=== PATIENT | female | born 1990 | race Caucasian/White ===

== ENCOUNTER 2018-02-23 14:40 | Inpatient (IN) | payer MEDICAID ==
--- NOTE | 2018-02-23 15:08 | ED PDOC ---
Arrival/HPI - General Chief Complaint: GI Problem Time Seen by Provider: 02/23/18 14:51 Historian: Patient - History of Present Illness Narrative History of Present Illness (Text): 02/23/18 15:04 27 y/o female, no significant pmh, nkda, approx. 6 weeks , , LMP , c/o epigastric pain with nausea/vomiting x 10 days. Pt. stated that she was seen at [facility] ER already for this problem, discharge home with zofran/ diclegiis, stated that it's limited relief for her, no lower abdominal or pelvic pain, no hematuria, no palpitation, no chest pain or shortness of breath , no numbness or tingling, no other medical or psychological complaints. Past Medical History - Provider Review Nursing Documentation Reviewed: Yes - Infectious Disease Hx of Infectious Diseases: None - Psychiatric Hx Substance Use: No - Anesthesia Hx Anesthesia: No Family/Social History - Physician Review Nursing Documentation Reviewed: Yes Family/Social History: Unknown Family HX Smoking Status: Unknown If Ever Smoked Hx Alcohol Use: No Hx Substance Use: No Allergies/Home Meds Allergies/Adverse Reactions: Allergies No Known Allergies Allergy (Verified 02/23/18 15:00) Home Medications: Home Meds Medication Instructions Recorded Confirmed No Known Home Med 02/23/18 02/23/18 Review of Systems - Review of Systems Constitutional: absent: Fatigue, Fevers Eyes: absent: Vision Changes ENT: absent: Hearing Changes Respiratory: absent: SOB, Cough Cardiovascular: absent: Chest Pain Gastrointestinal: Abdominal Pain, Nausea, Vomiting. absent: Diarrhea Musculoskeletal: absent: Arthralgias, Back Pain Skin: absent: Rash, Pruritis Neurological: absent: Headache, Dizziness Psychiatric: absent: Anxiety, Depression Physical Exam Vital Signs Reviewed: Yes Vital Signs Temp Pulse Resp BP Pulse Ox 02/23/18 18:00 97.3 F L 89 17 103/63 99 02/23/18 16:12 98.4 F 02/23/18 14:56 99.5 F 88 18 123/84 99 Temperature: Afebrile Blood Pressure: Normal Pulse: Regular Respiratory Rate: Normal Appearance: Positive for: Well-Appearing, Non-Toxic Pain Distress: Mild Mental Status: Positive for: Alert and Oriented X 3 - Systems Exam Head: Present: Atraumatic, Normocephalic Pupils: Present: PERRL Extroacular Muscles: Present: EOMI Conjunctiva: Present: Normal Mouth: Present: Moist Mucous Membranes Neck: Present: Normal Range of Motion Respiratory/Chest: Present: Clear to Auscultation, Good Air Exchange. No: Respiratory Distress, Accessory Muscle Use Cardiovascular: Present: Regular Rate and Rhythm, Normal S1, S2. No: Murmurs Abdomen: Present: Tenderness (+epigastric tenderness, negative aquino sign). No : Distention, Peritoneal Signs, Rebound, Guarding Back: Present: Normal Inspection. No: Midline Tenderness Upper Extremity: Present: Normal Inspection. No: Cyanosis, Edema Lower Extremity: Present: Normal Inspection. No: Edema Neurological: Present: GCS=15, CN II-XII Intact, Speech Normal, Motor Func Grossly Intact, Gait Normal, Memory Normal Skin: Present: Warm, Dry, Normal Color. No: Rashes Psychiatric: Present: Alert, Oriented x 3, Normal Insight, Normal Concentration Medical Decision Making ED Course and Treatment: 02/23/18 15:14 Differential: Cholecystitis vs. Gastritis vs. induced vomiting vs. Dehydration vs. Rhabdomylosis vs. Electorlyte imbalance vs. UTI -Labs/ua -IVF/pepcid/reglan -Abdominal sonogram -Observe and reassess 02/23/18 18:26 -Pt. feels nauseous with 50mg IV benadryl and fluid continuous with mild improvement. -Abdominal sonogram show: No significant or acute findings to account for/ related to the clinical presentation. -Labs show no acute findings except potassium 3.2 from vomiting (potassium chloride po ordered, confirmed with Dr. Mesa and it's okay for single dose po ) -UA ordered but no urine sample yet after 1500cc fluid -I tried to give her saltine cracker and muriel todd, unable to keep it down, has intrable vomiting and poor ingestion po, will admit her for observation, paging obgyn nutrition worker Dr. Hayes. 02/23/18 18:33 -I spoke to Dr. Hayes obgyn nutrition worker, discussed about the case/labs/treatment, agreed to admit this patient for observation, and will see the patient as consult tomorrow. Paging hospitalist for admission. 02/23/18 18:42 -I spoke to the hospitalist, Dr. Shepherd, discussed about the case/labs/treatment/ discussion with DR. Hayes, will admit to her service -I discussed with DR. Mesa, he will put in the admission. -Pending UA result. 02/23/18 19:11 -UA show +Leukocyte, po intolerance, rocephine 1gm IV ordered. - Lab Interpretations Lab Results: 02/23/18 15:20 02/23/18 15:20 Lab Results 02/23/18 15:20: WBC 4.5, RBC 5.24, Hgb 13.3, Hct 39.8, MCV 76.0 L, MCH 25.4, MCHC 33.4, RDW 12.5, Plt Count 261, MPV 11.9 H, Gran % 60.7, Lymph % (Auto) 27.1 , [place] % (Auto) 11.8 H, Eos % (Auto) 0.0 L, Baso % (Auto) 0.4, Gran # 2.73, Lymph # (Auto) 1.2, [place] # (Auto) 0.5, Eos # (Auto) 0.0, Baso # (Auto) 0.02 02/23/18 15:20: Beta HCG, Quant [id number] H 02/23/18 15:20: Sodium 142, Potassium 3.2 L, Chloride 102, Carbon Dioxide 21, Anion Gap 22 H, BUN 8, Creatinine 0.4 L, Est GFR ( Amer) > 60, Est GFR ( Non-Af Amer) > 60, Random Glucose 84, Calcium 9.9, Total Bilirubin 0.5, AST 27, ALT 33, Alkaline Phosphatase 97, Total Creatine Kinase 32 L, Total Protein 8.6 H , Albumin 4.7, Globulin 3.9, Albumin/Globulin Ratio 1.2, Lipase 41 - RAD Interpretation Radiology Orders: 02/23/18 15:08 ABDOMEN COMPLETE [US] Stat HISTORY: epigastric pain, vomiting COMPARISON: None. TECHNIQUE: Sonographic evaluation of the abdomen. FINDINGS: LIVER: Measures 14.4 cm. Normal echogenicity of the liver parenchyma. No mass. No intrahepatic bile duct dilatation. GALLBLADDER: Unremarkable. No gallstones. COMMON BILE DUCT: Measures 5.1 mm. No stones. No dilatation. PANCREAS: Obscured by overlying bowel gas. Non diagnostic assessment of the pancreas RIGHT KIDNEY: Measures 4.7 x 9.9cm. Normal echogenicity. No calculus, mass, or hydronephrosis. LEFT KIDNEY: Measures 5.3 x 10.3cm. Normal echogenicity. No calculus, mass, or hydronephrosis. SPLEEN: Normal in size and contour. No mass. AORTA: Obscured by overlying bowel gas IVC: Obscured by overlying bowel gas. OTHER FINDINGS: None. IMPRESSION: No significant or acute findings to account for/ related to the clinical presentation. Limitations of the current examination: Nonvisualization of retroperitoneal structures including aorta, IVC and pancreas. She Dental Laboratory Technology Teacher: Radiologist - Medication Orders Current Medication Orders: Sodium Chloride (Sodium Chloride 0.9%) 1,000 mls @ 500 mls/hr IV .Q2H ELOINA Last Admin: 02/23/18 16:58 Dose: 500 mls/hr eMAR Start Stop Document 02/23/18 16:58 EWO (Rec: 02/23/18 16:58 [facility] [id number]) Intravenous Solution Start Date 02/23/18 Start Time 16:58 End Date 02/23/18 End time 17:58 Total Infusion Time 60 Ceftriaxone Sodium (Rocephin 1 Gram Ivpb) 1 gm in 100 mls @ 200 mls/hr IVPB STAT STA PRN Reason: Protocol Stop: 02/23/18 19:39 Discontinued Medications Diphenhydramine HCl (Benadryl) 50 mg IVP STAT STA Stop: 02/23/18 16:34 Last Admin: 02/23/18 16:58 Dose: 50 mg IVP Administration Document 02/23/18 16:58 EW (Rec: 02/23/18 16:58 [facility] [id number]) Charges for Administration # of IVP Administrations 1 Famotidine (Pepcid) 20 mg IVP STAT STA Stop: 02/23/18 15:10 Last Admin: 02/23/18 16:10 Dose: 20 mg IVP Administration Document 02/23/18 16:10 EWO (Rec: 02/23/18 16:10 [facility] [id number]) Charges for Administration # of IVP Administrations 1 Sodium Chloride (Sodium Chloride 0.9%) 1,000 mls @ 999 mls/hr IV .Q1H1M STA Stop: 02/23/18 16:09 Last Admin: 02/23/18 15:26 Dose: 999 mls/hr eMAR Start Stop Document 02/23/18 15:26 EWO (Rec: 02/23/18 15:26 [facility] [id number]) Intravenous Solution Start Date 02/23/18 Start Time 15:26 End Date 02/23/18 End time 16:26 Total Infusion Time 60 Metoclopramide HCl (Reglan) 10 mg IVP STAT STA Stop: 02/23/18 15:10 Last Admin: 02/23/18 15:26 Dose: 10 mg IVP Administration Document 02/23/18 15:26 EWO (Rec: 02/23/18 15:26 [facility] [id number]) Charges for Administration # of IVP Administrations 1 Potassium Chloride (K-Dur 20 Meq Er Tab) 20 meq PO STAT STA Stop: 02/23/18 16:37 Last Admin: 02/23/18 16:58 Dose: 20 meq - PA / PRODUCTION MAINTENANCE MECHANIC / Resident Statement / has reviewed & agrees with the documentation as recorded. Disposition/Present on Arrival - Present on Arrival Any Indicators Present on Arrival: No History of DVT/PE: No History of Uncontrolled Diabetes: No Urinary Catheter: No History of Decub. Ulcer: No History Surgical Site Infection Following: None - Disposition Have Diagnosis and Disposition been Completed?: Yes Diagnosis: , Vomiting, Hyperemesis arising during , Intractable vomiting , UTI (urinary tract infection) Disposition: HOSPITALIZED Disposition Time: 15:15 Patient Plan: Admission, Observation Patient Problems: Current Active Problems Problem Status Onset Acute Vomiting Acute Hyperemesis arising during Acute Intractable vomiting Acute Condition: STABLE
[2018-02-23] MEDS ORDERED: Sodium Chloride 0.9% 1,000 ML IV STA (15:09)
--- NOTE | 2018-02-23 16:09 | US ---
HISTORY: epigastric pain, vomiting COMPARISON: None. TECHNIQUE: Sonographic evaluation of the abdomen. FINDINGS: LIVER: Measures 14.4 cm. Normal echogenicity of the liver parenchyma. No mass. No intrahepatic bile duct dilatation. GALLBLADDER: Unremarkable. No gallstones. COMMON BILE DUCT: Measures 5.1 mm. No stones. No dilatation. PANCREAS: Obscured by overlying bowel gas. Non diagnostic assessment of the pancreas RIGHT KIDNEY: Measures 4.7 x 9.9cm. Normal echogenicity. No calculus, mass, or hydronephrosis. LEFT KIDNEY: Measures 5.3 x 10.3cm. Normal echogenicity. No calculus, mass, or hydronephrosis. SPLEEN: Normal in size and contour. No mass. AORTA: Obscured by overlying bowel gas IVC: Obscured by overlying bowel gas. OTHER FINDINGS: None. IMPRESSION: No significant or acute findings to account for/ related to the clinical presentation. Limitations of the current examination: Nonvisualization of retroperitoneal structures including aorta, IVC and pancreas. She
[2018-02-23 16:20] LABS: BASO # 0.02 K/mm3 (0.0-2.0); BASO % 0.4 % (0.0-3.0); GRAN # 2.73 (1.4-6.5); GRAN % 60.7 % (50.0-68.0); HEMOGLOBIN 13.3 g/dL (12.0-16.0); LYMPH # 1.2 (1.2-3.4); LYMPH % 27.1 % (22.0-35.0); MEAN CORPUSCULAR HEMOGLOBIN 25.4 pg (25.0-35.0); MEAN CORPUSCULAR HGB CONC 33.4 g/dl (31.0-37.0); MEAN PLATELET VOLUME 11.9 fl (7.0-11.0); MONO # 0.5 (0.1-0.6); MONO % 11.8 % (1.0-6.0); RBC 5.24 10^6/uL (3.5-6.1); RED CELL DISTRIBUTION WIDTH 12.5 % (11.5-14.5); WHITE BLOOD COUNT 4.5 10^3/ul (4.5-11.0)
[2018-02-23 16:21] LABS: ALB/GLOB RATIO 1.2 (1.1-1.8); ALBUMIN 4.7 g/dL (3.0-4.8); ALT/SGPT 33 U/L (7-56); AST/SGOT 27 U/L (14-36); BLOOD UREA NITROGEN 8 mg/dL (7-21); CALCIUM 9.9 mg/dL (8.4-10.5); GFR AFRICAN-AMERICAN > 60; GFR NON-AFRICAN AMERICAN > 60; LIPASE 41 U/L (23-300)
[2018-02-23] MEDS ORDERED: DiphenhydrAMINE 50 mg/ml Inj IVP STA (16:33)
[2018-02-23] MEDS ORDERED: Potassium Chloride 20 mEq ER Tab PO STA ×2 (16:36→20:32)
[2018-02-23] MEDS ORDERED: Sodium Chloride 0.9% 1,000 ML IV SCH (16:45)
[2018-02-23 19:05] LABS: URINE BILIRUBIN NEGATIVE (NEGATIVE); URINE BLOOD SMALL (NEGATIVE); URINE GLUCOSE (UA) NEGATIVE (NEGATIVE); URINE LEUKOCYTE ESTERASE SMALL Leu/uL (NEGATIVE); URINE PROTEIN 30 mg/dL (<30 mg/dL); URINE UROBILINOGEN 0.2 E.U./dL (<1 E.U./dL)
[2018-02-23 19:09] LABS: URINE APPEARANCE SL CLOUDY (CLEAR); URINE COLOR YELLOW (YELLOW)
[2018-02-23] MEDS ORDERED: cefTRIAXone 1 gm 1 GM/100 ML BAG IVPB STA (19:10)
[2018-02-23 19:19] LABS: URINE BACTERIA MOD (NEG); URINE EPITHELIAL CELLS MANY /hpf (0-5); URINE RBC 15 - 20 /hpf (0-2); URINE WBC 15 - 20 /hpf (0-6)
[2018-02-23 20:31] VITALS: BMI 28.3
--- NOTE | 2018-02-23 20:41 | CP.PCM.HP ---
<Chandni Grant - Last Filed: 02/23/18 21:50> History of Present Illness - History of Present Illness History of Present Illness: Chandni Grant D.O. PYG1 -- Natural Resources Technician -- Medicine History and Physical This is a 27 female with past medical history of GERD and urinary tract infection (UTI) who came into the [facility] Emergency Department ( ED) for nausea and vomiting. Per patient, the nausea and vomiting began 10 days ago. She says that she has not been able to eat or drink much without it leading to bouts of vomiting. Patient describes the vomit as white and greenish. Patient reports she is about 6 weeks , and her first day of her menstrual cycle was December 31, 2017. Patient says that consuming food and liquid exacerbate her vomiting episodes. Patient recently seen at [facility], where she was given zofran for her nausea and vomiting, but it persisted. Patient says she had similar symptoms with her prior pregnancies, which were both normal vaginal deliveries with no complications. In addition, the patient reports that she was recently started on treatment for UTI starting 7 days ago, which was the treatment she received at [facility] ED this previous Saturday. Patient admits she has 1 day left of antibiotics. Patient admits to epigastric pain which she describes as burning sensation. ROS is otherwise unremarkable for abdominal pain, diarrhea, rash, lower extremity pain or swelling, fever, chills, dysuria, hematuria, pelvic cramping, vaginal spotting and/or vaginal bleeding, history of abortions and/or miscarriages. Past Medical History: GERD - Per patient, only during Surgical History: Patient denies Family History: Patient denies family history of anemia, and/or bleeding tendencies Home Medications: Doxylamine QH Ondansetron Nitrofurantoin vitamin Known allergies: Patient denies Insurance: [place] Medicaid O Golf Player Assistant: Anum Marks Anne Primary Care physician: Unknown Present on Admission - Present on Admission Any Indicators Present on Admission: No History of DVT/PE: No History of Uncontrolled Diabetes: No Urinary Catheter: No Decubitus Ulcer Present: No Review of Systems - Review of Systems Systems not reviewed;Unavailable: Language Barrier (Translation provided by who speaks and understand Chinese adequately ) Review of Systems: as per HPI - Constitutional Constitutional: As Per HPI - EENT Eyes: As Per HPI Ears: As Per HPI Nose/Mouth/Throat: As Per HPI - Breasts Breasts: As Per HPI - Cardiovascular Cardiovascular: As Per HPI - Respiratory Respiratory: As Per HPI - Gastrointestinal Gastrointestinal: As Per HPI - Genitourinary Genitourinary: As Per HPI - Reproductive: Female Reproductive:Female: As Per HPI - Menstruation Menstruation: As Per HPI - Musculoskeletal Musculoskeletal: As Per HPI - Integumentary Integumentary: As Per HPI - Neurological Neurological: As Per HPI - Psychiatric Psychiatric: As Per HPI - Endocrine Endocrine: As Per HPI - Hematologic/Lymphatic Hematologic: As Per HPI Past Patient History - Infectious Disease Hx of Infectious Diseases: None - Tetanus Immunizations Tetanus Immunization: Unknown - Past Medical History & Family History Past Medical History?: Yes Past Family History: Reviewed and not pertinent Pertinent Family History: Patient denies family history of bleeding disorders, anemia, and/or heart conditions. - Past Social History Smoking Status: Never Smoked Chewing Tobacco Use: No Cigar Use: No Occupation: Unemployed Alcohol: None Drugs: Denies Home Situation {Lives}: With Family Domestic Violence: Negative - GASTROINTESTINAL Hx Gastroesophageal Reflux: Yes (during both prior pregnancies ) Hx Vomiting: Yes (during both prior pregnancies ) - GENITOURINARY/GYNECOLOGICAL Hx Urinary Tract Infection: Yes (recently treated with macrobid ) LMP:: 12/31/2017 : 3 Para: 2 Termination of : 0 - PSYCHIATRIC Hx Psychophysiologic Disorder: No Hx Anxiety: No Hx Depression: No Hx Substance Use: No - SURGICAL HISTORY Hx Surgeries: No - ANESTHESIA Hx Anesthesia: No Meds Home Medications: Home Medication List Medication Instructions Recorded Confirmed Type Vit Calc,Iron,Folic 1 each PO DAILY #30 tablet 02/24/18 Rx [ Vitamins] Doxylamine/Pyridoxine HCl (B6) 2 each PO HS #30 tablet. 02/25/18 Rx [Conchita Mccrary 10-10 mg Tablet] Famotidine [Pepcid] 20 mg PO DAILY #15 tab 02/25/18 Rx Allergies/Adverse Reactions: Allergies Allergy/AdvReac Type Severity Reaction Status Date / Time No Known Allergies Allergy Verified 02/23/18 15:00 Physical Exam - Constitutional Appears: Well, No Acute Distress, Other - Head Exam Head Exam: ATRAUMATIC, NORMAL INSPECTION, NORMOCEPHALIC - Eye Exam Eye Exam: Normal appearance. absent: Conjunctival injection, Periorbital swelling, Scleral icterus Pupil Exam: NORMAL ACCOMODATION - ENT Exam ENT Exam: Mucous Membranes Moist - Neck Exam Neck exam: Positive for: Full Rom, Normal Inspection - Respiratory Exam Respiratory Exam: Clear to Auscultation Bilateral, NORMAL BREATHING PATTERN. absent: Accessory Muscle Use, Chest Wall Tenderness, Decreased Breath Sounds, Prolonged Expiratory Phase, Rales, Rhonchi, Wheezes, Respiratory Distress, Stridor - Cardiovascular Exam Cardiovascular Exam: REGULAR RHYTHM. absent: Bradycardia, Tachycardia, Clicks, Diastolic murmur, Gallop Additional comments: at 89 beats per minute - GI/Abdominal Exam GI & Abdominal Exam: Hypoactive Bowel Sounds, Soft, Tenderness (tenderness to palpation inferior to xyphoid process ). absent: Distended, Firm, Guarding Additional comments: Negative for Guerrero's sign, negative for McBurney's sign, no rebound, no guarding. - Extremities Exam Extremities exam: Positive for: full ROM, normal inspection. Negative for: calf tenderness, pedal edema, tenderness - Back Exam Back exam: NORMAL INSPECTION - Neurological Exam Neurological exam: Alert, CN II-XII Intact, Normal Gait, Oriented x3 - Psychiatric Exam Psychiatric exam: Normal Affect, Normal Mood - Skin Skin Exam: Dry, Intact, Pallor, Warm Results - Vital Signs Recent Vital Signs: Last Vital Signs Temp 97.3 F L 02/23/18 18:00 Pulse 89 02/23/18 18:00 Resp 17 02/23/18 18:00 BP 103/63 02/23/18 18:00 Pulse Ox 99 02/23/18 18:00 - Labs Result Diagrams: 02/23/18 15:20 02/23/18 15:20 Labs: Laboratory Results - last 24 hr 02/23/18 18:59 Urine Color Yellow Urine Appearance Sl cloudy Urine pH 6.0 Ur Specific [place] >= 1.030 Urine Protein 30 H Urine Glucose (UA) Negative Urine Ketones >=80 Urine Blood Small H Urine Nitrate Negative Urine Bilirubin Negative Urine Urobilinogen 0.2 Ur Leukocyte Esterase Small H Urine RBC 15 - 20 Urine WBC 15 - 20 Ur Epithelial Cells Many Urine Bacteria Mod - EKG Data EKG Interpreted by: ER Physician - EKG Data When Compared to Previous EKG: (no previous EKG) Assessment & Plan - Assessment and Plan (Free Text) Assessment: This is a 27 year old female at 6 weeks gestational age with past medical history of UTI refractory to macrobid, and GERD who presented to the ED for nausea, vomiting for 10 days. Patient was subsequently admitted for evaluation and treatment for dehydration and UTI. -induced nausea and vomiting versus unlikely cholecystitis Negative Guerrero's sign Abd/Pelvic Ultrasound, per radiology report: No significant or acute findings Start IVF NS 100c/hr Monitor with CMP NPO Metoclopramide 10mg IVP given in ED Ondansetron 4mg IVP Q6H PRN Golf Player Assistant consulted: Dr. Mendez, appreciate recommendations UTI, refractory to treatment with Macrobid Currently afebrile Single dose ceftriaxone 1gm IVPB given in ED Start Rocephin 1g IV Daily Pending repeat urine analysis Pending urine culture Upper epigastric pain likely secondary to GERD, likely -induced Continue famotidine 40mg PO HS Hypokalemia, K+ 3.2 Potassium 20mg PO given in ED Replete with potassium 40mg PO IVF Monitor GI/DVT Prophylaxis Pepcid Sequential compression device PRN The patient was seen and the case was reviewed in detail with Attending Physician Dr. Courtney Grant D.O. PGY1 -- Natural Resources Technician <Armaan Valdez - Last Filed: 02/26/18 22:37> Results - Vital Signs Recent Vital Signs: Last Vital Signs Temp 98.2 F 02/25/18 08:06 Pulse 66 02/25/18 08:06 Resp 18 02/25/18 08:06 BP 134/65 02/25/18 08:06 Pulse Ox 98 02/25/18 08:06 - Labs Result Diagrams: 02/25/18 05:45 02/25/18 05:45
[2018-02-23] MEDS: Sodium Chloride 0.9% 1,000 ML IV SCH (21:03)
[2018-02-24] MEDS: Sodium Chloride 0.9% 1,000 ML IV SCH (06:27)
[2018-02-24 06:37] LABS: BASO # 0.02 K/mm3 (0.0-2.0); BASO % 0.4 % (0.0-3.0); EOS % 0.7 % (1.5-5.0); GRAN # 2.32 (1.4-6.5); GRAN % 43.5 % (50.0-68.0); HEMOGLOBIN 11.5 g/dL (12.0-16.0); LYMPH # 2.4 (1.2-3.4); MEAN CELL VOLUME 76.3 fl (80.0-105.0); MEAN CORPUSCULAR HEMOGLOBIN 25.1 pg (25.0-35.0); MEAN CORPUSCULAR HGB CONC 32.9 g/dl (31.0-37.0); MEAN PLATELET VOLUME 11.9 fl (7.0-11.0); MONO # 0.6 (0.1-0.6); MONO % 11.4 % (1.0-6.0); RBC 4.59 10^6/uL (3.5-6.1); RED CELL DISTRIBUTION WIDTH 12.8 % (11.5-14.5); WHITE BLOOD COUNT 5.3 10^3/ul (4.5-11.0)
--- NOTE | 2018-02-24 06:50 | CP.PCM.PN ---
<Chandni Grant - Last Filed: 02/24/18 21:30> Subjective - Date & Time of Evaluation Date of Evaluation: 02/24/18 Time of Evaluation: 06:49 - Subjective Subjective: Chandni Grant D.O. PYG1 -- Product Marketer -- Medicine Progress Note Patient was seen at bedside and admits to continued nausea and vomiting this morning. Patient says she still has upper epigastric pain that she describes as burning. Patient was able to tolerate clear liquid diet in the afternoon, but was still nauseous. Patient otherwise denies leg pain, chest pain, shortness of breath, lower extremity edema, headache and/or pelvic cramping. Patient denies alcohol consumption, tobacco use, and/or recreational drug use. Objective - Vital Signs/Intake and Output Vital Signs (last 24 hours): Temp Pulse Resp BP Pulse Ox 98.3 F 59 L 20 128/69 99 02/24/18 06:00 02/24/18 06:00 02/24/18 06:00 02/24/18 06:00 02/24/18 06:00 Intake and Output: 02/23/18 02/24/18 18:59 06:59 Intake Total 1100 Output Total 0 Balance 1100 - Medications Medications: Current Medications Famotidine (Pepcid) 40 mg PO HS ELOINA Sodium Chloride (Sodium Chloride 0.9%) 1,000 mls @ 500 mls/hr IV .Q2H ELOINA Last Admin: 02/23/18 16:58 Dose: 500 mls/hr Sodium Chloride (Sodium Chloride 0.9%) 1,000 mls @ 100 mls/hr IV .Q10H ELOINA Last Admin: 02/24/18 06:27 Dose: 100 mls/hr Ceftriaxone Sodium (Rocephin 1 Gram Ivpb) 1 gm in 100 mls @ 100 mls/hr IVPB DAILY ELOINA PRN Reason: Protocol Ondansetron HCl (Zofran Inj) 4 mg IVP Q6H PRN PRN Reason: Nausea/Vomiting Last Admin: 02/23/18 21:03 Dose: 4 mg - Labs Labs: 02/24/18 06:00 - Constitutional Appears: Non-toxic, No Acute Distress - Head Exam Head Exam: ATRAUMATIC, NORMAL INSPECTION, NORMOCEPHALIC - Eye Exam Eye Exam: Normal appearance, PERRL. absent: Conjunctival injection, Scleral icterus Pupil Exam: NORMAL ACCOMODATION - ENT Exam ENT Exam: Mucous Membranes Moist, Normal Exam - Neck Exam Neck Exam: Full ROM, Normal Inspection - Respiratory Exam Respiratory Exam: Clear to Ausculation Bilateral, NORMAL BREATHING PATTERN. absent: Accessory Muscle Use, Chest Wall Tenderness, Decreased Breath Sounds, Prolonged Expiratory Phase, Rales, Rhonchi, Wheezes, Respiratory Distress, Stridor - Cardiovascular Exam Cardiovascular Exam: Bradycardia, REGULAR RHYTHM. absent: Tachycardia, Clicks, Diastolic murmur, Gallop, Irregular Rhythm, JVD, Rubs, +S1, +S2 Additional comments: 59 beats per minute - GI/Abdominal Exam GI & Abdominal Exam: Soft, Tenderness (upper epigastric tenderness to palpation inferior to xyphoid process ), Normal Bowel Sounds. absent: Bruit, Distended, Firm, Guarding, Rigid, Diminished Bowel Sounds, Hernia, Hypoactive Bowel Sounds , Mass - Extremities Exam Extremities Exam: Normal Capillary Refill, Normal Inspection. absent: Calf Tenderness, Joint Swelling, Pedal Edema, Tenderness - Back Exam Back Exam: Full ROM, NORMAL INSPECTION, tenderness. absent: paraspinal tenderness, rash noted - Neurological Exam Neurological Exam: Alert, Awake, CN II-XII Intact, Normal Gait, Oriented x3 - Psychiatric Exam Psychiatric exam: Normal Affect, Normal Mood - Skin Skin Exam: Dry, Intact, Normal Color, Warm. absent: Cyanosis, Diaphoretic, Rash Assessment and Plan - Assessment and Plan (Free Text) Assessment: This is a 27 year old female at 7 weeks gestational age with past medical history of UTI and GERD who presented to the ED for nausea, vomiting for 10 days. Patient was subsequently admitted for evaluation and treatment for dehydration and UTI. -induced nausea and vomiting, resolved -Abd/Pelvic Ultrasound, per radiology report: No significant or acute findings -Start regular diet -IVF -Ondansetron 4mg IVP Q6H PRN -Data Management Manager consulted, recommendations appreciated -Transvaginal ultrasound findings correlate with reported gestational age of approx 7 weeks, no abnormalities reported UTI, refractory to treatment with Macrobid -Rocephin 1g IV x2 -Repeat U/A pending -Urine culture pending Upper epigastric pain likely secondary to GERD, likely -induced -Continue famotidine 40mg PO HS -Discussed dietary changes including avoiding spicy food, chocolate, coffee, and /or tomatoes Hypokalemia, K+ 3.2 -Potassium 20mg PO given in ED -Replete with potassium 40mg PO -continue IVF -Monitor GI/DVT Prophylaxis -Pepcid -Sequential compression device PRN Patient education during -Discussed risks and benefits of using category B medications (zofran, famotidine and rocephin) -Discussed risk of consumption of alcohol, tobacco use, and/or recreational drug use during and encouraged patient to continue to avoid these. The patient was seen and the case was reviewed in detail with Attending Physician Dr. Ritika Grant D.O. PGY1 -- Product Marketer <Karla Yost - Last Filed: 02/25/18 14:25> Objective - Vital Signs/Intake and Output Vital Signs (last 24 hours): Temp Pulse Resp BP Pulse Ox 98.2 F 66 18 134/65 98 02/25/18 08:06 02/25/18 08:06 02/25/18 08:06 02/25/18 08:06 02/25/18 08:06 Intake and Output: 02/25/18 02/25/18 06:59 18:59 Intake Total 330 Balance 330 - Labs Labs: 02/25/18 05:45 02/25/18 05:45 Attending/Attestation - Attestation I have personally seen and examined this patient.: Yes I have fully participated in the care of the patient.: Yes I have reviewed all pertinent clinical information, including history, physical exam and plan: Yes Notes (Text): 02/25/18 14:21 Attending note; Patient seen and examined with resident. Patient is a 27-year-old female about 6-7 weeks is admitted with hyperemesis gravidarum. Currently on IV fluids. Continue Zofran/Reglan when necessary. Patient was given Diclegis recently. Hypokalemia; potassium supplementation given. Monitor closely. LIEUTENANT GOVERNOR evaluation appreciated. Transvaginal ultrasound showed 7 weeks 6 days live intrauterine . Positive UA; currently on IV Rocephin. Patient was recently treated with nitrofurantoin. Urine culture is pending. Upon discharge the patient will follow-up with PMD Dr. Kathleen Ortiz.
[2018-02-24 07:02] LABS: ALB/GLOB RATIO 1.1 (1.1-1.8); ALBUMIN 3.7 g/dL (3.0-4.8); ALT/SGPT 35 U/L (7-56); AST/SGOT 28 U/L (14-36); BLOOD UREA NITROGEN 4 mg/dL (7-21); CALCIUM 8.9 mg/dL (8.4-10.5); GFR AFRICAN-AMERICAN > 60; GFR NON-AFRICAN AMERICAN > 60
[2018-02-24] MEDS: cefTRIAXone 1 gm 1 GM/100 ML BAG IVPB SCH (10:13)
--- NOTE | 2018-02-24 16:22 | CP.PCM.DIS ---
<Chandni Grant - Last Filed: 02/26/18 05:44> Provider - Provider Date of Admission: 02/23/18 18:42 Attending physician: Karla Yost MD Primary care physician: Kathleen Ortiz MD Consults: OBGYN: Dr. Hayes Time Spent in preparation of Discharge (in minutes): 45 Diagnosis - Discharge Diagnosis (1) Status: Acute (2) Intractable vomiting Status: Acute Priority: High (3) GERD (gastroesophageal reflux disease) Status: Acute (4) UTI (urinary tract infection) Status: Resolved Priority: Medium Hospital Course - Lab Results Lab Results: Most Recent Lab Values WBC 5.3 10^3/ul (4.5-11.0) 02/24/18 06:00 RBC 4.59 10^6/uL (3.5-6.1) 02/24/18 06:00 Hgb 11.5 g/dL (12.0-16.0) L 02/24/18 06:00 Hct 35.0 % (36.0-48.0) L 02/24/18 06:00 MCV 76.3 fl (80.0-105.0) L 02/24/18 06:00 MCH 25.1 pg (25.0-35.0) 02/24/18 06:00 MCHC 32.9 g/dl (31.0-37.0) 02/24/18 06:00 RDW 12.8 % (11.5-14.5) 02/24/18 06:00 Plt Count 232 10^3/uL (120.0-450.0) 02/24/18 06:00 MPV 11.9 fl (7.0-11.0) H 02/24/18 06:00 Gran % 43.5 % (50.0-68.0) L 02/24/18 06:00 Lymph % (Auto) 44.0 % (22.0-35.0) H 02/24/18 06:00 [place] % (Auto) 11.4 % (1.0-6.0) H 02/24/18 06:00 Eos % (Auto) 0.7 % (1.5-5.0) L 02/24/18 06:00 Baso % (Auto) 0.4 % (0.0-3.0) 02/24/18 06:00 Gran # 2.32 (1.4-6.5) 02/24/18 06:00 Lymph # (Auto) 2.4 (1.2-3.4) 02/24/18 06:00 [place] # (Auto) 0.6 (0.1-0.6) 02/24/18 06:00 Eos # (Auto) 0.0 (0.0-0.7) 02/24/18 06:00 Baso # (Auto) 0.02 K/mm3 (0.0-2.0) 02/24/18 06:00 Sodium 139 mmol/L (132-148) 02/24/18 06:00 Potassium 3.7 mmol/L (3.6-5.0) 02/24/18 06:00 Chloride 107 mmol/L (98-107) 02/24/18 06:00 Carbon Dioxide 18 mmol/L (21-33) L 02/24/18 06:00 Anion Gap 17 (10-20) 02/24/18 06:00 BUN 4 mg/dL (7-21) L 02/24/18 06:00 Creatinine 0.4 mg/dl (0.7-1.2) L 02/24/18 06:00 Est GFR ( Amer) > 60 02/24/18 06:00 Est GFR (Non-Af Amer) > 60 02/24/18 06:00 Random Glucose 72 mg/dL (70-110) 02/24/18 06:00 Calcium 8.9 mg/dL (8.4-10.5) 02/24/18 06:00 Total Bilirubin 0.6 mg/dL (0.2-1.3) 02/24/18 06:00 AST 28 U/L (14-36) 02/24/18 06:00 ALT 35 U/L (7-56) 02/24/18 06:00 Alkaline Phosphatase 75 U/L (38-126) 02/24/18 06:00 Total Creatine Kinase 32 U/L (35-230) L 02/23/18 15:20 Total Protein 7.0 g/dL (5.8-8.3) 02/24/18 06:00 Albumin 3.7 g/dL (3.0-4.8) 02/24/18 06:00 Globulin 3.3 gm/dL 02/24/18 06:00 Albumin/Globulin Ratio 1.1 (1.1-1.8) 02/24/18 06:00 Lipase 41 U/L (23-300) 02/23/18 15:20 Beta HCG, Quant 822361.00 mIU/mL (0-6.15) H 02/23/18 15:20 Urine Color Yellow (YELLOW) 02/23/18 18:59 Urine Appearance Sl cloudy (CLEAR) 02/23/18 18:59 Urine pH 6.0 (4.7-8.0) 02/23/18 18:59 Ur Specific [place] >= 1.030 (1.005-1.035) 02/23/18 18:59 Urine Protein 30 mg/dL (<30 mg/dL) H 02/23/18 18:59 Urine Glucose (UA) Negative mg/dL (NEGATIVE) 02/23/18 18:59 Urine Ketones >=80 mg/dL (NEGATIVE) 02/23/18 18:59 Urine Blood Small (NEGATIVE) H 02/23/18 18:59 Urine Nitrate Negative (NEGATIVE) 02/23/18 18:59 Urine Bilirubin Negative (NEGATIVE) 02/23/18 18:59 Urine Urobilinogen 0.2 E.U./dL (<1 E.U./dL) 02/23/18 18:59 Ur Leukocyte Esterase Small [place]/uL (NEGATIVE) H 02/23/18 18:59 Urine RBC 15 - 20 /hpf (0-2) 02/23/18 18:59 Urine WBC 15 - 20 /hpf (0-6) 02/23/18 18:59 Ur Epithelial Cells Many /hpf (0-5) 02/23/18 18:59 Urine Bacteria Mod (NEG) 02/23/18 18:59 - Hospital Course Hospital Course: 27-year-old with past medical history of recent urinary tract infection, -induced gastroesophogeal reflux disease, presented to the [facility] Emergency Department (ED) for nausea and intractable vomiting. Patient was recently seen at [facility] for similar symptoms and was discharged with zofran, however her symptoms persisted. Patient was also recently treated for UTI with macrobid. While in the ED, Patient was found to be hypokalemic, and continued to vomit. Patient was treated with 1 dose Rocephin IVP, antiemetics, and underwent abdominal and pelvic ultrasound. Per radiology report, no abnormalities were found. Liquor Inspector was consulted and recommended that the patient be admitted for observation. The patient was placed NPO, started on IV fluids, and potassium was repleted. Patient received 2 additional doses of Rocephin IVP. Patient's diet was progressed to clear liquids and then regular diet as tolerated. Transvaginal ultrasound was performed and determined the patient is currently 7 weeks and 6 days gestational age, gestational in concordance with LMP 12/31/2017, and no abnormalities were noted, per radiology report. Patient was treated with vitamins, pepsid, diclegious, and On day of discharge, the patient was afebrile, nausea improved, and vomiting resolved. Patient was educated on foods to avoid during , and to consume smaller portion meals throughout the day. Patient is to follow-up with Dr. Hayes and with OBGYN within 3-5 days. Discharge Medications: Doxylamine/Pyridoxine HCl (B6) 1 tab PO each Famotidine 20mg tab PO DAILY Vitamin calc, iron, folic acid 1 each tab PO DAILY Discharge Exam - Head Exam Head Exam: ATRAUMATIC, NORMAL INSPECTION, NORMOCEPHALIC - Eye Exam Eye Exam: Normal appearance, PERRL Pupil Exam: NORMAL ACCOMODATION - ENT Exam ENT Exam: Mucous Membranes Moist, Normal Exam - Neck Exam Neck exam: Full Rom, Normal Inspection - Respiratory Exam Respiratory Exam: Clear to PA & Lateral, NORMAL BREATHING PATTERN, UNREMARKABLE. absent: Accessory Muscle Use, Chest Wall Tenderness, Decreased Breath Sounds, Prolonged Expiratory Phase, Rales, Rhonchi, Wheezes, Respiratory Distress - Cardiovascular Exam Cardiovascular Exam: REGULAR RHYTHM. absent: Bradycardia, Tachycardia, Clicks, Diastolic murmur, Gallop, Irregular Rhythm, Rubs, Systolic Murmur - GI/Abdominal Exam GI & Abdominal Exam: Normal Bowel Sounds, Unremarkable. absent: Bruit, Diminished Bowel Sounds, Distended, Guarding, Hyperactive Bowel Sounds, Mass, Organomegaly, Pulsatile Mass, Rebound, Rigid, Soft, Tenderness - Extremities Exam Extremities exam: normal capillary refill, normal inspection - Back Exam Back exam: NORMAL INSPECTION. absent: paraspinal tenderness - Neurological Exam Neurological exam: Alert, CN II-XII Intact, Normal Gait, Oriented x3, Reflexes Normal - Psychiatric Exam Psychiatric exam: Normal Affect, Normal Mood - Skin Skin Exam: Dry, Intact, Normal Color, Warm Discharge Plan - Discharge Medications Prescriptions: Doxylamine/Pyridoxine HCl (B6) [Dicrosa Mccrary 10-10 mg Tablet] 2 each PO HS #30 tablet. Famotidine [Pepcid] 20 mg PO DAILY #15 tab - Follow Up Plan Condition: STABLE Disposition: HOME/ ROUTINE Patient education suggested?: Yes Instructions: Morning Sickness (DC), Nausea and Vomiting of (DC) Additional Instructions: 1. Follow up with primary doctor within 3-5 days 2. Follow up with OBGYN within 3-5 days 3. Stop using zofran for nausea 4. Take Diclegis as prescribed for nausea 5. Recommend vitamins daily 6. Finish previously prescribed antibiotics 7. Return to ED if symptoms worsen Referrals: Anum Hayes MD [Staff Provider] - Kathleen Ortiz MD [Primary Care Provider] - <Karla Yost - Last Filed: 02/26/18 15:38> Provider - Provider Date of Admission: 02/24/18 20:48 Attending physician: Karla Yost MD Primary care physician: Kathleen Ortiz MD Hospital Course - Lab Results Lab Results: Most Recent Lab Values WBC 4.9 10^3/ul (4.5-11.0) 02/25/18 05:45 RBC 4.72 10^6/uL (3.5-6.1) 02/25/18 05:45 Hgb 11.8 g/dL (12.0-16.0) L 02/25/18 05:45 Hct 35.9 % (36.0-48.0) L 02/25/18 05:45 MCV 76.1 fl (80.0-105.0) L 02/25/18 05:45 MCH 25.0 pg (25.0-35.0) 02/25/18 05:45 MCHC 32.9 g/dl (31.0-37.0) 02/25/18 05:45 RDW 12.6 % (11.5-14.5) 02/25/18 05:45 Plt Count 245 10^3/uL (120.0-450.0) 02/25/18 05:45 MPV 11.7 fl (7.0-11.0) H 02/25/18 05:45 Gran % 38.3 % (50.0-68.0) L 02/25/18 05:45 Lymph % (Auto) 48.8 % (22.0-35.0) H 02/25/18 05:45 [place] % (Auto) 11.5 % (1.0-6.0) H 02/25/18 05:45 Eos % (Auto) 1.2 % (1.5-5.0) L 02/25/18 05:45 Baso % (Auto) 0.2 % (0.0-3.0) 02/25/18 05:45 Gran # 1.86 (1.4-6.5) 02/25/18 05:45 Lymph # (Auto) 2.4 (1.2-3.4) 02/25/18 05:45 [place] # (Auto) 0.6 (0.1-0.6) 02/25/18 05:45 Eos # (Auto) 0.1 (0.0-0.7) 02/25/18 05:45 Baso # (Auto) 0.01 K/mm3 (0.0-2.0) 02/25/18 05:45 Sodium 140 mmol/L (132-148) 02/25/18 05:45 Potassium 3.3 mmol/L (3.6-5.0) L 02/25/18 05:45 Chloride 106 mmol/L (98-107) 02/25/18 05:45 Carbon Dioxide 20 mmol/L (21-33) L 02/25/18 05:45 Anion Gap 17 (10-20) 02/25/18 05:45 BUN 4 mg/dL (7-21) L 02/25/18 05:45 Creatinine 0.4 mg/dl (0.7-1.2) L 02/25/18 05:45 Est GFR ( Amer) > 60 02/25/18 05:45 Est GFR (Non-Af Amer) > 60 02/25/18 05:45 Random Glucose 91 mg/dL (70-110) 02/25/18 05:45 Calcium 9.1 mg/dL (8.4-10.5) 02/25/18 05:45 Total Bilirubin 0.5 mg/dL (0.2-1.3) 02/25/18 05:45 AST 30 U/L (14-36) 02/25/18 05:45 ALT 26 U/L (7-56) 02/25/18 05:45 Alkaline Phosphatase 78 U/L (38-126) 02/25/18 05:45 Total Creatine Kinase 32 U/L (35-230) L 02/23/18 15:20 Total Protein 7.2 g/dL (5.8-8.3) 02/25/18 05:45 Albumin 3.8 g/dL (3.0-4.8) 02/25/18 05:45 Globulin 3.3 gm/dL 02/25/18 05:45 Albumin/Globulin Ratio 1.2 (1.1-1.8) 02/25/18 05:45 Lipase 41 U/L (23-300) 02/23/18 15:20 Beta HCG, Quant 664798.00 mIU/mL (0-6.15) H 02/23/18 15:20 Urine Color Yellow (YELLOW) 02/23/18 18:59 Urine Appearance Sl cloudy (CLEAR) 02/23/18 18:59 Urine pH 6.0 (4.7-8.0) 02/23/18 18:59 Ur Specific [place] >= 1.030 (1.005-1.035) 02/23/18 18:59 Urine Protein 30 mg/dL (<30 mg/dL) H 02/23/18 18:59 Urine Glucose (UA) Negative mg/dL (NEGATIVE) 02/23/18 18:59 Urine Ketones >=80 mg/dL (NEGATIVE) 02/23/18 18:59 Urine Blood Small (NEGATIVE) H 02/23/18 18:59 Urine Nitrate Negative (NEGATIVE) 02/23/18 18:59 Urine Bilirubin Negative (NEGATIVE) 02/23/18 18:59 Urine Urobilinogen 0.2 E.U./dL (<1 E.U./dL) 02/23/18 18:59 Ur Leukocyte Esterase Small [place]/uL (NEGATIVE) H 02/23/18 18:59 Urine RBC 15 - 20 /hpf (0-2) 02/23/18 18:59 Urine WBC 15 - 20 /hpf (0-6) 02/23/18 18:59 Ur Epithelial Cells Many /hpf (0-5) 02/23/18 18:59 Urine Bacteria Mod (NEG) 02/23/18 18:59 Attending/Attestation - Attestation I have personally seen and examined this patient.: Yes I have fully participated in the care of the patient.: Yes I have reviewed all pertinent clinical information, including history, physical exam and plan: Yes Notes (Text): 02/26/18 15:34 Attending note; Patient seen and examined with resident. Patient is a 27-year-old female about 7 weeks is admitted with hyperemesis gravidarum. Treated with IV fluids. treated with IV reglan prn. Patient was given Diclegis recently. Hypokalemia; potassium supplementation given. CORE LOADER evaluation appreciated. Transvaginal ultrasound showed 7 weeks 6 days live intrauterine . Positive UA; Treated with IV Rocephinx 3 days. urine culture is negative. Currently no urinary symptoms. Patient will be discharged home with by mouth Pepcid, dicleegis and vitamin. Advised to follow-up with CORE LOADER at [facility] (formerly [facility]). Upon discharge the patient will follow-up with PMD Dr. Kathleen Ortiz.
--- NOTE | 2018-02-24 17:14 | US ---
Date of service: 02/24/2018 PROCEDURE: 1st trimester ultrasound HISTORY: COMPARISON: None available. TECHNIQUE: Standard protocol for this study/examination. FINDINGS: LMP: 12/31/2017. Prior examinations from the current : None TECHNIQUE: Real-time 2D imaging, duplex and color Doppler. FINDINGS: Cardiac activity: Present Rate: 164 BPM Measurements: [place] rump length: 1.31 cm Gestational age based on CRL 7 weeks 6 days Gestational age 7 weeks 6 days based on gestational sac measurement 3.14. Cm Gestational age derived from LMP: 7 weeks 6 days JASON based on LMP: 10/07/2018. JASON based on biometry: 10/07/2018. Gestational concordance Yolk sac identified Uterus: Unremarkable. Cervix: No Cervical abnormalities: Negative examination for cervical dilatation or effacement. Closed cervix measuring 5.19 cm Subchorionic hemorrhage: None UTERUS: 5.3 x 7.6 x 14.9 cm. Location of fibroid and size: Anterior 1.2 x 1.5 x 1.8 cm ADNEXA: Right: 1.6 x 3.6 x 4.2 cm. Normal Doppler arterial waveform documented. Left: 1.8 x 2.9 x 3.1 cm. Complex mass 1.5 x 2 cm. Perhaps hemorrhagic cyst. Normal Doppler arterial waveform documented Fluid in the cul-de-sac: None IMPRESSION: Seven weeks 6 days live intrauterine gestation. Gestational Concordance noted.
[2018-02-25] MEDS: Sodium Chloride 0.9% 1,000 ML IV SCH (02:14)
[2018-02-25 06:22] LABS: BASO # 0.01 K/mm3 (0.0-2.0); BASO % 0.2 % (0.0-3.0); EOS # 0.1 (0.0-0.7); EOS % 1.2 % (1.5-5.0); GRAN # 1.86 (1.4-6.5); GRAN % 38.3 % (50.0-68.0); HEMOGLOBIN 11.8 g/dL (12.0-16.0); LYMPH # 2.4 (1.2-3.4); LYMPH % 48.8 % (22.0-35.0); MEAN CELL VOLUME 76.1 fl (80.0-105.0); MEAN CORPUSCULAR HGB CONC 32.9 g/dl (31.0-37.0); MEAN PLATELET VOLUME 11.7 fl (7.0-11.0); MONO # 0.6 (0.1-0.6); MONO % 11.5 % (1.0-6.0); RBC 4.72 10^6/uL (3.5-6.1); RED CELL DISTRIBUTION WIDTH 12.6 % (11.5-14.5); WHITE BLOOD COUNT 4.9 10^3/ul (4.5-11.0)
[2018-02-25 06:59] LABS: ALB/GLOB RATIO 1.2 (1.1-1.8); ALBUMIN 3.8 g/dL (3.0-4.8); ALT/SGPT 26 U/L (7-56); AST/SGOT 30 U/L (14-36); BLOOD UREA NITROGEN 4 mg/dL (7-21); CALCIUM 9.1 mg/dL (8.4-10.5); GFR AFRICAN-AMERICAN > 60; GFR NON-AFRICAN AMERICAN > 60
[2018-02-25 08:07] VITALS: BP 134/65; PULSE 66; RESP 18; TEMP 98.2; O2SAT 98
[2018-02-25] MEDS: cefTRIAXone 1 gm 1 GM/100 ML BAG IVPB SCH (09:11)
== END 2018-02-25 13:50 | disposition home or self-care (01) | DRG 886 ==
LOC: ED 14:40 → ERH 18:42 → 3RSO 20:45 → OBSVTOIN 02-24 20:48
PROVIDERS: ADMIT Hospitalist; ATTEND Internal Medicine
DX: O99.281 Endocrine, nutritional and metabolic diseases complicating pregnancy, first trimester (principal); E86.0 Dehydration; E87.6 Hypokalemia; O23.41 Unspecified infection of urinary tract in pregnancy, first trimester; O99.611 Diseases of the digestive system complicating pregnancy, first trimester; K21.9 Gastro-esophageal reflux disease without esophagitis; R11.2 Nausea with vomiting, unspecified; Z3A.01 Less than 8 weeks gestation of pregnancy

== ENCOUNTER 2018-03-05 12:07 | Emergency (ER) | payer MEDICAID ==
[2018-03-05 12:35] VITALS: RESP 18; TEMP 98.3; O2SAT 98; BMI 26.5
[2018-03-05] MEDS ORDERED: Sodium Chloride 0.9% 1,000 ML IV STA (12:44)
[2018-03-05 13:16] LABS: BASO # 0.01 K/mm3 (0.0-2.0); BASO % 0.2 % (0.0-3.0); EOS % 0.7 % (1.5-5.0); GRAN # 2.1 (1.4-6.5); GRAN % 47.8 % (50.0-68.0); HEMOGLOBIN 13.3 g/dL (12.0-16.0); LYMPH # 1.6 (1.2-3.4); MEAN CELL VOLUME 75.1 fl (80.0-105.0); MEAN CORPUSCULAR HEMOGLOBIN 25.6 pg (25.0-35.0); MEAN CORPUSCULAR HGB CONC 34.1 g/dl (31.0-37.0); MEAN PLATELET VOLUME 11.5 fl (7.0-11.0); MONO # 0.6 (0.1-0.6); MONO % 14.3 % (1.0-6.0); RBC 5.19 10^6/uL (3.5-6.1); RED CELL DISTRIBUTION WIDTH 12.7 % (11.5-14.5); WHITE BLOOD COUNT 4.4 10^3/ul (4.5-11.0)
--- NOTE | 2018-03-05 13:26 | ED PDOC ---
Arrival/HPI - General Historian: Patient - History of Present Illness Time/Duration: < month Symptom Course: Intermittent Activities at Onset: Light Context: Home <Margoth Hall - Last Filed: 03/05/18 21:44> <Leisamikeace Gerald - Last Filed: 03/05/18 22:20> - General Chief Complaint: GI Problem Time Seen by Provider: 03/05/18 12:42 - History of Present Illness Narrative History of Present Illness (Text): 03/05/18 13:12 This is a 27 year old female with PMH of GERD presenting to the ER for vomiting. Patient states she has been vomiting everyday for two weeks and has associated epigastric pain. She is currently approximately 8 weeks with LMP around 12/29/17. She was seen at [facility] [place] and discharged on zofran/diclegis two weeks ago. Last week, she was seen at [facility] for vomiting and admitted for one day. She was discharged on Phenergan 25mg rectally every 6 hours as needed and reglan 10mg every 6 hours as needed. She denies fevers, headache, chills, abdominal pain, hematemesis, hematochezia, numbness, tingling , urinary complaints, CP and SOB. She is scheduled to see OBGYN Dr. Radha Gamez at [facility] tomorrow. PCP: Angel Wang (Margoth Hall) Past Medical History - Provider Review Nursing Documentation Reviewed: Yes - Infectious Disease Hx of Infectious Diseases: None - Tetanus Immunization Tetanus Immunization: Unknown - Cardiac Hx Cardiac Disorders: No - Pulmonary Hx Respiratory Disorders: No - Neurological Hx Neurological Disorder: No - HEENT Hx HEENT Disorder: No - Endocrine/Metabolic Hx Endocrine Disorders: No - Integumentary Hx Dermatological Disorder: No - Musculoskeletal/Rheumatological Hx Musculoskeletal Disorders: No Hx Falls: No - Gastrointestinal Hx Gastroesophageal Reflux: Yes (during both prior pregnancies ) Hx Vomiting: Yes (during both prior pregnancies ) - Genitourinary/Gynecological Hx Urinary Tract Infection: Yes (recently treated with macrobid ) - Psychiatric Hx Psychophysiologic Disorder: No Hx Anxiety: No Hx Depression: No Hx Substance Use: No - Anesthesia Hx Anesthesia: No <Margoth Hall - Last Filed: 03/05/18 21:44> Family/Social History - Physician Review Nursing Documentation Reviewed: Yes Family/Social History: Unknown Family HX Smoking Status: Never Smoked Hx Alcohol Use: No Hx Substance Use: No <Margoth Hall - Last Filed: 03/05/18 21:44> Allergies/Home Meds <Margoth Hall - Last Filed: 03/05/18 21:44> <Gearld Marroquin DO - Last Filed: 03/05/18 22:20> Allergies/Adverse Reactions: Allergies No Known Allergies Allergy (Verified 02/23/18 15:00) Review of Systems - Physician Review All systems were reviewed & negative as marked: Yes - Review of Systems Constitutional: Normal. absent: Fevers Eyes: Normal ENT: Normal Respiratory: Normal. absent: SOB, Cough Cardiovascular: Normal. absent: Chest Pain, Palpitations Gastrointestinal: Abdominal Pain, Nausea, Vomiting. absent: Stool Changes, Constipation, Diarrhea, Hematochezia, Hematemesis Genitourinary Female: Normal. absent: Dysuria, Frequency Musculoskeletal: Normal Skin: Normal Neurological: Normal. absent: Headache, Dizziness Psychiatric: Normal <Margoth Hall - Last Filed: 03/05/18 21:44> Physical Exam Vital Signs Reviewed: Yes Temperature: Afebrile Blood Pressure: Normal Pulse: Regular Respiratory Rate: Normal Appearance: Positive for: Well-Appearing, Non-Toxic, Comfortable Pain Distress: None Mental Status: Positive for: Alert and Oriented X 3 - Systems Exam Head: Present: Atraumatic, Normocephalic Pupils: Present: PERRL Extroacular Muscles: Present: EOMI Conjunctiva: Present: Normal Mouth: Present: Moist Mucous Membranes Neck: Present: Normal Range of Motion Respiratory/Chest: Present: Clear to Auscultation, Good Air Exchange. No: Respiratory Distress, Accessory Muscle Use Cardiovascular: Present: Regular Rate and Rhythm, Normal S1, S2. No: Murmurs Abdomen: Present: Tenderness, Normal Bowel Sounds. No: Distention, Peritoneal Signs, Rebound, Guarding Back: Present: Normal Inspection Upper Extremity: Present: Normal Inspection. No: Cyanosis, Edema Lower Extremity: Present: Normal Inspection. No: Edema Neurological: Present: Speech Normal, Motor Func Grossly Intact, Normal Sensory Function Skin: Present: Warm, Dry, Normal Color. No: Rashes Psychiatric: Present: Alert, Oriented x 3, Normal Insight, Normal Concentration <Margoth Hall - Last Filed: 03/05/18 21:44> Vital Signs Temp Pulse Resp BP Pulse Ox 03/05/18 15:18 68 18 118/76 98 03/05/18 14:38 64 18 141/78 98 03/05/18 12:35 98.3 F 66 18 144/82 98 Medical Decision Making <Margoth Hall - Last Filed: 03/05/18 21:44> - Lab Interpretations I have reviewed the lab results: Yes <Gerald Marroquin DO - Last Filed: 03/05/18 22:20> ED Course and Treatment: 03/05/18 13:30 Impression: This is a 27 year old female with PMH of GERD presenting to the ER for vomiting. Patient states she has been vomiting everyday for two weeks and has associated epigastric pain. Differential not limited to: induced vomiting vs gastritis vs dehydration vs gastroenteritis Plan: Will get blood work and give reglan for the nausea. Progress: 03/05/18 14:18 Vitals stable, afebrile and resting comfortably. Nausea and vomiting are improved. (Margoth Hall) 03/05/18 Patient Seen With Resident: In agreement with resident note which contains more details about the patient. Patient was seen and evaluated with resident. Came up with plan and treatment together. (Gerald Marroquin DO) - Lab Interpretations Lab Results: 03/05/18 13:00 03/05/18 13:00 Lab Results 03/05/18 14:30: Urine Color Yellow, Urine Appearance Slight-cloudy, Urine pH 6.0 , Ur Specific [place] >= 1.030, Urine Protein 30 H, Urine Glucose (UA) Negative , Urine Ketones >=80, Urine Blood Small H, Urine Nitrate Negative, Urine Bilirubin Small H, Urine Urobilinogen 0.2, Ur Leukocyte Esterase Negative, Urine RBC 0 - 2, Urine WBC Negative, Ur Epithelial Cells 1 - 3, Amorphous Sediment Trace, Urine Bacteria Trace, Urine Other Mucus 03/05/18 13:00: Beta HCG, Quant [id number] H 03/05/18 13:00: Sodium 137, Potassium 3.4 L, Chloride 97 L, Carbon Dioxide 24, Anion Gap 19, BUN 9, Creatinine 0.5 L, Est GFR ( Amer) > 60, Est GFR (Non -Af Amer) > 60, Random Glucose 93, Calcium 9.9, Magnesium 1.9, Total Bilirubin 0.4, AST 26, ALT 39, Alkaline Phosphatase 79, Total Protein 8.3, Albumin 4.6, Globulin 3.7, Albumin/Globulin Ratio 1.2, Lipase 88 03/05/18 13:00: WBC 4.4 L, RBC 5.19, Hgb 13.3, Hct 39.0, MCV 75.1 L, MCH 25.6, MCHC 34.1, RDW 12.7, Plt Count 284, MPV 11.5 H, Gran % 47.8 L, Lymph % (Auto) 37.0 H, [place] % (Auto) 14.3 H, Eos % (Auto) 0.7 L, Baso % (Auto) 0.2, Gran # 2.10 , Lymph # (Auto) 1.6, [place] # (Auto) 0.6, Eos # (Auto) 0.0, Baso # (Auto) 0.01 - Medication Orders Current Medication Orders: Discontinued Medications Sodium Chloride (Sodium Chloride 0.9%) 1,000 mls @ 1,000 mls/hr IV .Q1H STA Stop: 03/05/18 13:43 Last Admin: 03/05/18 13:08 Dose: 1,000 mls/hr eMAR Start Stop Document 03/05/18 13:08 GMD (Rec: 03/05/18 13:08 [facility] [id number]) Intravenous Solution Start Date 03/05/18 Start Time 13:08 End Date 03/05/18 End time 14:08 Total Infusion Time 60 Metoclopramide HCl (Reglan) 10 mg IVP STAT STA Stop: 03/05/18 12:48 Last Admin: 03/05/18 13:08 Dose: 10 mg IVP Administration Document 03/05/18 13:08 GMD (Rec: 03/05/18 13:08 [facility] [id number]) Charges for Administration # of IVP Administrations 1 - PA / [employer] / Resident Statement / has reviewed & agrees with the documentation as recorded. / has examined the patient and agrees with the treatment plan. <Margoth Hall - Last Filed: 03/05/18 21:44> Disposition/Present on Arrival - Present on Arrival Any Indicators Present on Arrival: No History of DVT/PE: No History of Uncontrolled Diabetes: No Urinary Catheter: No History of Decub. Ulcer: No History Surgical Site Infection Following: None - Disposition Have Diagnosis and Disposition been Completed?: Yes Disposition Time: 17:00 Patient Plan: Discharge <Margoth Hall - Last Filed: 03/05/18 21:44> - Disposition Disposition Time: 14:15 <Gerald Marroquin DO - Last Filed: 03/05/18 22:20> - Disposition Diagnosis: , Vomiting Disposition: HOME/ ROUTINE Condition: IMPROVED Discharge Instructions (ExitCare): Nausea and Vomiting, Adult (DC) Additional Instructions: BREANNA LUDWIG, thank you for letting us take care of you today. Your provider was Gerald Marroquin DO and you were treated for VOMITING. The emergency medical care you received today was directed at your acute symptoms. If you were prescribed any medication, please fill it and take as directed. It may take several days for your symptoms to resolve. Return to the Emergency Department if your symptoms worsen, do not improve, or if you have any other problems. Please contact your doctor or call one of the physicians/clinics you have been referred to that are listed on the Patient Visit Information form that is included in your discharge packet. Bring any paperwork you were given at discharge with you along with any medications you are taking to your follow up visit. Our treatment cannot replace ongoing medical care by a primary care provider outside of the emergency department. Thank you for allowing the [email or web address] team to be part of your care today. Stay hydrated by taking small amounts of fluids throughout the day. Follow up with you [place] doctor tomorrow as scheduled. Referrals: Kathleen Ortiz MD [Primary Care Provider] - Follow up with primary Forms: [employer] (Chinese)
[2018-03-05 14:14] LABS: BLOOD UREA NITROGEN 9 mg/dL (7-21); CALCIUM 9.9 mg/dL (8.4-10.5); GFR AFRICAN-AMERICAN > 60; GFR NON-AFRICAN AMERICAN > 60
[2018-03-05 14:15] LABS: ALB/GLOB RATIO 1.2 (1.1-1.8); ALBUMIN 4.6 g/dL (3.0-4.8); ALT/SGPT 39 U/L (7-56); AST/SGOT 26 U/L (14-36)
[2018-03-05 14:16] LABS: LIPASE 88 U/L (23-300)
[2018-03-05 14:43] LABS: URINE BILIRUBIN SMALL (NEGATIVE); URINE BLOOD SMALL (NEGATIVE); URINE GLUCOSE (UA) NEGATIVE (NEGATIVE); URINE LEUKOCYTE ESTERASE NEGATIVE Leu/uL (NEGATIVE); URINE PROTEIN 30 mg/dL (<30 mg/dL); URINE UROBILINOGEN 0.2 E.U./dL (<1 E.U./dL)
[2018-03-05 14:45] LABS: URINE APPEARANCE SLIGHT-CLOUDY (CLEAR); URINE COLOR YELLOW (YELLOW)
[2018-03-05 14:50] LABS: URINE AMORPHOUS SEDIMENT TRACE; URINE BACTERIA TRACE (NEG); URINE RBC 0 - 2 /hpf (0-2); URINE WBC NEGATIVE /hpf (0-6)
[2018-03-05 15:19] VITALS: BP 118/76; PULSE 68
== END 2018-03-05 15:18 | disposition home or self-care (01) ==
LOC: ED 12:07
DX: O21.9 Vomiting of pregnancy, unspecified (principal); Z3A.08 8 weeks gestation of pregnancy
CPT/HCPCS: 80053; 81001; 83690; 83735; 84702; 85025; 87086; 96361; 96374; 99284; J2765; J7030